=== PATIENT | female | born 1995 | race Caucasian/White ===

== ENCOUNTER 2016-11-28 11:34 | Emergency (ER) | payer OTHER ==
[~2016-11-28] VITALS: Ht 172.7 cm; Wt 107.0 kg
[~2016-11-28 11:34] MED LIST: ETON1IMP2 SUBD; PRENTAB26 PO; TOPI25TA99 PO
[2016-11-28 11:36] VITALS: TEMP 36.8; Ht 172.7 cm; Wt 107.0 kg
[2016-11-28] MEDS ORDERED: LEVOIUD (12:14)
[2016-11-28] MEDS ORDERED: SERT-234 PO (12:14)
[2016-11-28] MEDS ORDERED: SODIUM CHLORIDE 0.9% 1000ML 1,000 ML IV STA (12:43)
[2016-11-28 13:03] LABS: BASO % 0.5 %; BASO ABS # 0.03 K/uL (0-0.2); COMPLETE YES; EOS % 1.8 %; HEMATOCRIT 36.6 % (37-47); IG% 0.2 %; LYMPH % 22.6 %; LYMPH ABS # 1.37 K/uL (1.2-3.4); MEAN CELL VOLUME 86.3 fL (80-100); MEAN CORPUSCULAR HEMOGLOBIN 30.4 pg (25-34); MEAN CORPUSCULAR HGB CONC 35.2 g/dl (32-36); MEAN PLATELET VOLUME 9.3 fL (7.4-10.4); MONO % 7.4 %; NEUT % 67.5 %; PLATELET COUNT 241 K/uL (130-400); RED BLOOD COUNT 4.24 M/uL (4.2-5.4); WHITE BLOOD COUNT 6.07 K/uL (4.8-10.8)
[2016-11-28 13:11] LABS: ALT/SGPT 22 U/L (12-78); BLOOD UREA NITROGEN 12 mg/dl (7-18); BUN/CREATININE RATIO 14.3 (10-20); CALCIUM 9.3 mg/dl (8.5-10.1); CARBON DIOXIDE 26 mmol/L (21-32); CHLORIDE 108 mmol/L (98-107); CREATININE 0.84 mg/dl (0.60-1.20); GLUCOSE 84 mg/dl (70-99); MAGNESIUM 2.3 mg/dl (1.8-2.4); POTASSIUM 3.6 mmol/L (3.5-5.1); SODIUM 142 mmol/L (136-145)
[2016-11-28 13:12] LABS: URINE APPEARANCE CLEAR (CLEAR); URINE BILIRUBIN NEG (NEG); URINE COLOR YELLOW; URINE NITRITE NEG (NEG); URINE SPECIFIC GRAVITY 1.008 (1.000-1.030); UROBILINOGEN NEG (NEG); ZZUR CULT IF INDIC CLEAN CATCH NO
[2016-11-28 13:15] LABS: INR 0.9 (0.9-1.1); PARTIAL THROMBOPLASTIN RATIO 1.1; PROTHROMBIN TIME (PATIENT) 10.1 SECONDS (9.0-12.0)
[2016-11-28 13:19] LABS: MANUAL MICROSCOPIC REQUIRED? NO; REVIEW REQ? NO
[2016-11-28 13:20] LABS: ALKALINE PHOSPHATASE 68 U/L (45-117); AST/SGOT 11 U/L (15-37)
--- NOTE | 2016-11-28 15:09 | EMERGENCY ROOM VISIT NOTE ---
History Report prepared by Daniel: Shanae Campos Under the Supervision of: Dr. Petar Russell D.O. First contact with patient: 12:37 Chief Complaint: DIZZY Stated Complaint: DIZZY Nursing Triage Summary: dizziness for 1 week with diarrhea, no c/o pain no numbness or tingling no syncope and noticed she she gets this when she changes position and with walking it gets worse and then today she gets it sitting she states that she became concerned when she put her zip code where her year should have been pt is is alert and talking and is filling out her health history form History of Present Illness The patient is a 21 year old female who presents to the Emergency Room with complaints of persistent dizziness that began one week ago. The patient describes her dizziness feeling off balance and feeling like she will pass out. She denies any loss of consciousness, but states that she has been close. The patient states that today she has felt delusional and forgetful and also notes a headache. She states that she is currently on her menstrual cycle, but denies getting these symptoms with her typical menstrual cycle. 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 She states that her symptoms are increased with ambulation and standing. The patient reports a normal appetite and fluid intake. She denies any recent illness or hematochezia. The patient denies any chance of . Source of History: patient Onset: one week ago Position: other (global) Quality: other (dizziness) Timing: other (persistent) Modifying Factors (Worsening): other (standing and ambulation) Associated Symptoms: + headache, No hematochezia Review of Systems See HPI for pertinent positives & negatives. A total of 10 systems reviewed and were otherwise negative. Past Medical & Surgical Medical Problems: (1) Lawson's palsy (2) Migraine Surgical Problems: (1) H/O adenoidectomy (2) S/P tonsillectomy Family History Cancer Diabetes mellitus Hypertension Kidney disease Kidney stones Social History Smoking Status: Never Smoker Alcohol Use: none Occupation Status: student Current/Historical Medications Scheduled Multivit/Min/Iron/Fol Ac/Pren ( Vitamin), 1 TAB PO DAILY Sertraline (Zoloft), 100 MG PO HS Topiramate (Topamax ), 25 MG PO QAM Topiramate (Topamax ), 50 MG PO HS Miscellaneous Medications Levonorgestrel (Iud) (Mirena), 24 MCG Allergies Coded Allergies: No Known Allergies (Unverified , 11/28/16) Physical Exam Vital Signs Date Time Temp Pulse Resp B/P Pulse Ox O2 Delivery O2 Flow Rate FiO2 11/28/16 13:26 67 18 129/66 99 11/28/16 12:00 85 11/28/16 11:46 73 19 126/75 80 134/76 83 132/78 11/28/16 11:36 36.8 80 17 139/81 100 Room Air Physical Exam VITAL SIGNS: were reviewed as above. GENERAL:Non-toxic in appearance. SKIN: Warm dry and pink. HEAD: Normocephalic and atraumatic. OROPHARYNX: Is clear and moist NECK: Supple without lymphadenopathy or meningismus. LUNGS: clear. HEART: Regular rate and rhythm. ABDOMEN: Soft and nontender. EXTREMITIES: Warm and well perfused. NEUROLOGICALLY: Awake alert and oriented without focal deficit. Cranial nerves 2 -12 are intact. There is no pronator drift. Cerebellar testing is within normal limits. There is no nystagmus. There is no facial droop. Speech is clear. Vision is grossly normal. MUSCULOSKELETAL: Good muscle tone. No evidence of trauma. Medical Decision & Procedures Laboratory Results 11/28/16 12:13 Red Blood Count 4.24, Mean Corpuscular Volume 86.3, Mean Corpuscular Hemoglobin 30.4, Mean Corpuscular Hemoglobin Concent 35.2, Mean Platelet Volume 9.3, Neutrophils (%) (Auto) 67.5, Lymphocytes (%) (Auto) 22.6, Monocytes (%) (Auto) 7.4, Eosinophils (%) (Auto) 1.8, Basophils (%) (Auto) 0.5, Neutrophils # (Auto) 4.10, Lymphocytes # (Auto) 1.37, Monocytes # (Auto) 0.45, Eosinophils # (Auto) 0.11, Basophils # (Auto) 0.03 11/28/16 12:13 Test 11/28/16 12:10 11/28/16 12:13 Urine Color YELLOW Urine Appearance CLEAR (CLEAR) Urine pH 8.0 (4.5-7.5) Urine Specific [place] 1.008 (1.000-1.030) Urine Protein NEG (NEG) Urine Glucose (UA) NEG (NEG) Urine Ketones NEG (NEG) Urine Occult Blood NEG (NEG) Urine Nitrite NEG (NEG) Urine Bilirubin NEG (NEG) Urine Urobilinogen NEG (NEG) Urine Leukocyte Esterase NEG (NEG) Urine WBC (Auto) 1-5 /hpf (0-5) Urine RBC (Auto) 0-4 /hpf (0-4) Urine Hyaline Casts (Auto) 0 /lpf (0-5) Urine Epithelial Cells (Auto) 5-10 /lpf (0-5) Urine Bacteria (Auto) NEG (NEG) Urine Test NEG (NEG) White Blood Count 6.07 K/uL (4.8-10.8) Red Blood Count 4.24 M/uL (4.2-5.4) Hemoglobin 12.9 g/dL (12.0-16.0) Hematocrit 36.6 % (37-47) Mean Corpuscular Volume 86.3 fL (80-100) Mean Corpuscular Hemoglobin 30.4 pg (25-34) Mean Corpuscular Hemoglobin Concent 35.2 g/dl (32-36) Platelet Count 241 K/uL (130-400) Mean Platelet Volume 9.3 fL (7.4-10.4) Neutrophils (%) (Auto) 67.5 % Lymphocytes (%) (Auto) 22.6 % Monocytes (%) (Auto) 7.4 % Eosinophils (%) (Auto) 1.8 % Basophils (%) (Auto) 0.5 % Neutrophils # (Auto) 4.10 K/uL (1.4-6.5) Lymphocytes # (Auto) 1.37 K/uL (1.2-3.4) Monocytes # (Auto) 0.45 K/uL (0.11-0.59) Eosinophils # (Auto) 0.11 K/uL (0-0.5) Basophils # (Auto) 0.03 K/uL (0-0.2) RDW Standard Deviation 38.3 fL (36.4-46.3) RDW Coefficient of Variation 12.2 % (11.5-14.5) Immature Granulocyte % (Auto) 0.2 % Immature Granulocyte # (Auto) 0.01 K/uL (0.00-0.02) Prothrombin Time 10.1 SECONDS (9.0-12.0) Prothromb Time International Ratio 0.9 (0.9-1.1) Activated Partial Thromboplast Time 27.8 SECONDS (21.0-31.0) Partial Thromboplastin Ratio 1.1 Anion Gap 8.0 mmol/L (3-11) Est Creatinine Clear Calc Drug Dose 136.8 ml/min Estimated GFR () 116.0 Estimated GFR (Non- 100.1 BUN/Creatinine Ratio 14.3 (10-20) Calcium Level 9.3 mg/dl (8.5-10.1) Magnesium Level 2.3 mg/dl (1.8-2.4) Total Bilirubin 0.2 mg/dl (0.2-1) Direct Bilirubin < 0.1 mg/dl (0-0.2) Aspartate Amino Transf (AST/SGOT) 11 U/L (15-37) Alanine Aminotransferase (ALT/SGPT) 22 U/L (12-78) Alkaline Phosphatase 68 U/L (45-117) Total Creatine Kinase 50 U/L (26-192) Creatine Kinase MB < 0.5 ng/ml (0.5-3.6) Creatine Kinase MB Ratio (0-3.0) Troponin I < 0.015 ng/ml (0-0.045) Total Protein 7.4 gm/dl (6.4-8.2) Albumin 4.1 gm/dl (3.4-5.0) Lipase 148 U/L (73-393) Thyroid Stimulating Hormone (TSH) 1.660 uIu/ml (0.300-4.500) Laboratory results as stated above per my review. Medications Administered Medications (Trade) Dose Ordered Sig/Herrera Route Start Time Stop Time Status Last Admin Dose Admin Sodium Chloride (Nss 1000ml) 1,000 ml @ 999 mls/hr Q1H1M STAT IV 11/28/16 12:43 11/28/16 13:43 DC 11/28/16 12:59 999 MLS/HR ECG Indication: other (dizziness) Rate (beats per minute): 63 Rhythm: normal sinus Findings: no acute ischemic change, no ectopy ED Course 1237: Previous medical records were reviewed. The patient was evaluated in room A10. A complete history and physical examination was performed. 1243: Ordered Sodium Chloride 1000 ml @ 999 mls/hr IV. Medical Decision Differential includes acute coronary syndrome, myocardial infarction, CVA, TIA, anemia, infection, pneumonia, UTI, pyelonephritis, poor nutrition, dehydration, electrolyte disturbance,hypoglycemia. This is a 21-year-old female who presents to the ED with a chief complaint of dizziness. Times one week. The patient states that she feels like she is going to follow for pass out. She also felt forgetful today. She came in for evaluation for these symptoms. She is currently on her menstrual period but states that it is dot etcher apprentice than normal. She denies any chance of . She denies any fevers or recent illness. No blood in her stools. No nausea vomiting. Denies headache, chest pain or shortness of breath or other significant symptoms. Her vital signs are normal. Orthostatic vital signs are normal. Physical exam and neurologic exam are normal. EKG shows a normal sinus rhythm. CBC and complete metabolic panel are normal. TSH is normal. Urine did not show infection. She is not . Troponin was negative. The patient was told the results of the test per she is felt to be stable for discharge and outpatient follow-up. Impression Primary Impression: Dizziness Scribe Attestation The scribe's documentation has been prepared under my direction and personally reviewed by me in its entirety. I confirm that the note above accurately reflects all work, treatment, procedures, and medical decision making performed by me. Departure Information Dispostion Home / Self-Care Referrals Ines Martinez MD (PCP) Patient Instructions My [facility]
[2016-11-28 15:10] VITALS: BP 129/59; PULSE 71; O2SAT 98
== END 2016-11-28 15:40 | disposition home or self-care (01) ==
LOC: C.EDB 11:35 → C.EDA 15:40
DX: R42 Dizziness and giddiness (principal)

== ENCOUNTER 2017-02-03 20:54 | Inpatient (IN) | payer OTHER ==
[~2017-02-03] VITALS: Ht 172.7 cm; Wt 111.6 kg
[~2017-02-03 20:54] MED LIST changes: -ETON1IMP2 SUBD; +LEVOIUD; +SERT-234 PO
[2017-02-03 21:32] LABS: HEMATOCRIT 38.6 % (37-47); MEAN CELL VOLUME 85.6 fL (80-100); MEAN CORPUSCULAR HEMOGLOBIN 30.6 pg (25-34); MEAN CORPUSCULAR HGB CONC 35.8 g/dl (32-36); MEAN PLATELET VOLUME 9.2 fL (7.4-10.4); PLATELET COUNT 266 K/uL (130-400); RED BLOOD COUNT 4.51 M/uL (4.2-5.4); WHITE BLOOD COUNT 9.07 K/uL (4.8-10.8)
[2017-02-03 21:48] LABS: BLOOD UREA NITROGEN 10 mg/dl (7-18); BUN/CREATININE RATIO 10.7 (10-20); CALCIUM 9.3 mg/dl (8.5-10.1); CARBON DIOXIDE 25 mmol/L (21-32); CHLORIDE 105 mmol/L (98-107); GLUCOSE 96 mg/dl (70-99); POTASSIUM 3.5 mmol/L (3.5-5.1); SODIUM 141 mmol/L (136-145)
[2017-02-03 21:53] LABS: ACETAMINOPHEN < 2 ug/ml (10-30)
[2017-02-03 21:56] LABS: BASO % 0.4 %; BASO ABS # 0.04 K/uL (0-0.2); COMPLETE YES; EOS % 1.8 %; IG% 0.2 %; LYMPH % 22.4 %; LYMPH ABS # 2.03 K/uL (1.2-3.4); MONO % 7.2 %
[2017-02-03 21:58] LABS: URINE APPEARANCE TURBID (CLEAR); URINE BILIRUBIN NEG (NEG); URINE COLOR YELLOW; URINE NITRITE NEG (NEG); URINE SPECIFIC GRAVITY 1.024 (1.000-1.030); UROBILINOGEN NEG (NEG)
[2017-02-03 21:59] LABS: ALKALINE PHOSPHATASE 73 U/L (45-117); ALT/SGPT 25 U/L (12-78); AST/SGOT 11 U/L (15-37)
[2017-02-03 22:03] LABS: MANUAL MICROSCOPIC REQUIRED? NO; REVIEW REQ? NO
[2017-02-03 22:14] LABS: BENZODIAZEPINE, URINE NEG (NEG); COCAINE,URINE NEG (NEG); PHENCYCLIDINE, URINE NEG (NEG)
--- NOTE | 2017-02-04 01:02 | EMERGENCY ROOM VISIT NOTE ---
History Report prepared by Daniel: Gato Contreras Under the Supervision of: Dr. Wilberto Myles M.D. First contact with patient: 21:10 Chief Complaint: MENTAL HEALTH EVALUATION Stated Complaint: SUICIDAL IDEALTION History of Present Illness The patient is a 21 year old female who presents to the Emergency Room with concerns over her worsening mental status, which has been declining for the past week. The patient states that she has been under increased stress for the past month. She states that today she started to think of suicidal plans, specifically "wrecking my car." She texted her friend about the thoughts she was having, and then called her mother who brought her to the emergency department. She does admit to using both marijuana and alcohol within the past week. The patient has a history of depression and is on 100 mg of Zoloft daily. She also meets with a medical services manager regularly. Patient denies LOC, headache, fevers , chills, diaphoresis, visual changes, neck pain, chest pain, breathing difficulties, nausea, vomiting, abdominal pain, back pain, melena, hematochezia , urinary symptoms, numbness, weakness, lymphadenopathy, rash, or other complaints. 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 A total of ten systems were reviewed and were otherwise negative. Past Medical & Surgical Medical Problems: (1) Lawson's palsy (2) Migraine Surgical Problems: (1) H/O adenoidectomy (2) S/P tonsillectomy Family History Cancer Diabetes mellitus Hypertension Kidney disease Kidney stones Social History Smoking Status: Never Smoker Alcohol Use: none Marital Status: single Occupation Status: student Current/Historical Medications Scheduled Multivit/Min/Iron/Fol Ac/Pren ( Vitamin), 1 TAB PO DAILY Sertraline (Zoloft), 100 MG PO QAM Topiramate (Topamax ), 25 MG PO QAM Topiramate (Topamax ), 50 MG PO HS Miscellaneous Medications Levonorgestrel (Iud) (Mirena), 24 MCG Allergies Coded Allergies: No Known Allergies (Unverified , 02/03/17) Physical Exam Vital Signs Date Time Temp Pulse Resp B/P Pulse Ox O2 Delivery O2 Flow Rate FiO2 3/26/17 23:22 97 20 116/75 96 Room Air 02/03/17 21:00 37.1 111 18 151/87 99 Room Air Physical Exam GENERAL: Awake, alert, well appearing, no distress HENT: Normocephalic, atraumatic. TM's normal. Oropharynx unremarkable. EYES: PERRL. EOMI. Normal conjunctiva. Sclera non-icteric. NECK: Supple. No nuchal rigidity. FROM. No JVD or bruit. RESPIRATORY: CTA CARDIAC: RRR. No murmur. ABDOMEN: Soft, non distended. No tenderness to palpation. No rebound or guarding. No masses. MUSCULOSKELETAL: Unremarkable. No edema. No discoloration. Gross motor strength symmetric. NEURO: Cranial nerves 2-12 grossly intact. Normal sensorium. No sensory or motor deficits noted. Speech normal. No pronator drift. SKIN: No rash or jaundice noted. LYMPH: No adenopathy. PSYCH: depressed mood. positive suicidal ideation. negative homicidal ideation. Medical Decision & Procedures Laboratory Results 02/03/17 21:15 Red Blood Count 4.51, Mean Corpuscular Volume 85.6, Mean Corpuscular Hemoglobin 30.6, Mean Corpuscular Hemoglobin Concent 35.8, Mean Platelet Volume 9.2, Neutrophils (%) (Auto) 68.0, Lymphocytes (%) (Auto) 22.4, Monocytes (%) (Auto) 7.2, Eosinophils (%) (Auto) 1.8, Basophils (%) (Auto) 0.4, Neutrophils # (Auto) 6.17, Lymphocytes # (Auto) 2.03, Monocytes # (Auto) 0.65, Eosinophils # (Auto) 0.16, Basophils # (Auto) 0.04 02/03/17 21:15 Test 02/03/17 21:15 02/03/17 21:25 White Blood Count 9.07 K/uL (4.8-10.8) Red Blood Count 4.51 M/uL (4.2-5.4) Hemoglobin 13.8 g/dL (12.0-16.0) Hematocrit 38.6 % (37-47) Mean Corpuscular Volume 85.6 fL (80-100) Mean Corpuscular Hemoglobin 30.6 pg (25-34) Mean Corpuscular Hemoglobin Concent 35.8 g/dl (32-36) Platelet Count 266 K/uL (130-400) Mean Platelet Volume 9.2 fL (7.4-10.4) Neutrophils (%) (Auto) 68.0 % Lymphocytes (%) (Auto) 22.4 % Monocytes (%) (Auto) 7.2 % Eosinophils (%) (Auto) 1.8 % Basophils (%) (Auto) 0.4 % Neutrophils # (Auto) 6.17 K/uL (1.4-6.5) Lymphocytes # (Auto) 2.03 K/uL (1.2-3.4) Monocytes # (Auto) 0.65 K/uL (0.11-0.59) Eosinophils # (Auto) 0.16 K/uL (0-0.5) Basophils # (Auto) 0.04 K/uL (0-0.2) RDW Standard Deviation 39.4 fL (36.4-46.3) RDW Coefficient of Variation 12.7 % (11.5-14.5) Immature Granulocyte % (Auto) 0.2 % Immature Granulocyte # (Auto) 0.02 K/uL (0.00-0.02) Anion Gap 11.0 mmol/L (3-11) Est Creatinine Clear Calc Drug Dose 130.6 ml/min Estimated GFR () 106.7 Estimated GFR (Non- 92.0 BUN/Creatinine Ratio 10.7 (10-20) Calcium Level 9.3 mg/dl (8.5-10.1) Total Bilirubin 0.3 mg/dl (0.2-1) Direct Bilirubin < 0.1 mg/dl (0-0.2) Aspartate Amino Transf (AST/SGOT) 11 U/L (15-37) Alanine Aminotransferase (ALT/SGPT) 25 U/L (12-78) Alkaline Phosphatase 73 U/L (45-117) Total Protein 7.9 gm/dl (6.4-8.2) Albumin 4.3 gm/dl (3.4-5.0) Thyroid Stimulating Hormone (TSH) 2.400 uIu/ml (0.300-4.500) Salicylates Level < 1.7 mg/dl (2.8-20) Acetaminophen Level < 2 ug/ml (10-30) Ethyl Alcohol mg/dL < 3.0 mg/dl (0-3) Urine Color YELLOW Urine Appearance TURBID (CLEAR) Urine pH 7.0 (4.5-7.5) Urine Specific [place] 1.024 (1.000-1.030) Urine Protein NEG (NEG) Urine Glucose (UA) NEG (NEG) Urine Ketones TRACE (NEG) Urine Occult Blood NEG (NEG) Urine Nitrite NEG (NEG) Urine Bilirubin NEG (NEG) Urine Urobilinogen NEG (NEG) Urine Leukocyte Esterase NEG (NEG) Urine WBC (Auto) 1-5 /hpf (0-5) Urine RBC (Auto) 0-4 /hpf (0-4) Urine Hyaline Casts (Auto) 1-5 /lpf (0-5) Urine Epithelial Cells (Auto) 10-20 /lpf (0-5) Urine Bacteria (Auto) 1+ (NEG) Urine Test NEG (NEG) Urine Opiates Screen NEG (NEG) Urine Methadone, Qualitative NEG (NEG) Urine Barbiturates NEG (NEG) Urine Phencyclidine (PCP) Level NEG (NEG) Ur Amphetamine/Methamphetamine NEG (NEG) MDMA (Ecstasy) Screen NEG (NEG) Urine Benzodiazepines Screen NEG (NEG) Urine Cocaine Metabolite NEG (NEG) Urine Marijuana (THC) NEG (NEG) Laboratory results reviewed by me ED Course 2139: The patient was evaluated in room A7. A complete history and physical exam was performed. 2224: The patient has received medical clearance at this time. 2356: I reevaluated the patient at this time, she is resting comfortably in bed. 0031: [facility] HEL[facility] has arrived to evaluate the patient at this time. 0130: The patient will be signed out to Dr. Hicks at change of shift. Medical Decision Triage Nursing notes reviewed. The patient's presentation and history were concerning for suicidal thoughts. ETiologies such as mood disorder, toxicologic, infection, hypoglycemia, electrolyte abnormalities, cardiac sources, intracerebral event, neurologic, as well as others were entertained. The patient was evaluated. There is no medical etiologies identified. Her CBC , chemistry panel, toxicology screen, urinalysis and LFTs were unremarkable. On reassessment the patient was resting comfortably. She was pending Mental Health Evaluation. The patient's case was signed out to Dr. Haywood at the change of shift. The chart was completed utilizing [employer] Speech voice recognition software. Grammatical errors, random word insertions, pronoun errors, and incomplete sentences are an occasional consequence of this system due to software limitations, ambient noise, and hardware issues. Any formal questions or concerns about the content, text, or information contained within the body of this dictation should be directly addressed to the physician for clarification. Impression Primary Impression: Mood disorder Additional Impression: Suicidal ideation Scribe Attestation The scribe's documentation has been prepared under my direction and personally reviewed by me in its entirety. I confirm that the note above accurately reflects all work, treatment, procedures, and medical decision making performed by me. Departure Information Dispostion Still a Patient (Patient will be signed out to Dr. Hicks at change of shift) Referrals Ines Martinez MD (PCP) Patient Instructions My [facility] Problem Qualifiers
[2017-02-04] MEDS ORDERED: TOPIRAMATE 25 MG TAB PO STA (04:53)
[2017-02-04] MEDS ORDERED: SERTRALINE HCL 100 MG TAB PO STA (04:53)
--- NOTE | 2017-02-04 06:18 | EMERGENCY ROOM VISIT NOTE ---
ED Visit Note First contact with patient: 00:32 This case was signed out to me at change of shift by Dr. Myles. She is awaiting bed placement. 0330: The patient is being evaluated by mobile crisis at this time. 0405: the patient has consented for bed search at [facility] and here at this hospital. 0455: I ordered the patient's morning medications. 0530: The patient has not been accepted at [facility]. The plan is to admit the patient to [facility] some time this morning if there are discharges. 0630: The patient is signed out to Dr. Wraren at change of shift for disposition.
[2017-02-04] MEDS ORDERED: ACETAMINOPHEN 500 MG TAB PO STA (11:23)
[2017-02-04] MEDS ORDERED: MAGNESIUM HYDROXIDE SUSP 30 ML UDC PO PRN (11:30)
[2017-02-04] MEDS ORDERED: BISMUTH SUBSALICYLATE PER ML OMNICELL CHARGE PO PRN (11:30)
[2017-02-04] MEDS ORDERED: ALUMINUM/MAGNESIUM SUSP 30 ML UDC PO PRN (11:30)
[2017-02-04] MEDS ORDERED: SODIUM CHLORIDE 0.65% NA SOLN 45 ML (OCEAN) PRN (11:30)
[2017-02-04 11:36] VITALS: O2SAT 98
--- NOTE | 2017-02-04 11:40 | EMERGENCY ROOM VISIT NOTE ---
ED Visit Note First contact with patient: 11:23 21-year-old female with suicidal ideation was signed off to me from Dr. Haywood at change of shift. I reevaluated the patient at 1137. The patient is currently awaiting bed placement. The patient eventually admitted to [facility] [address].
[2017-02-04] MEDS ORDERED: SERTRALINE HCL 50 MG TAB PO ONE (12:36)
[2017-02-04 12:56] VITALS: BP 107/78; PULSE 86; TEMP 37.1; Ht 172.7 cm; Wt 111.6 kg
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
[2017-02-04] MEDS: ACETAMINOPHEN 325 MG TAB PO PRN (17:13)
[2017-02-04] MEDS: hydrOXYzine HCL 25 MG TAB PO PRN (20:23)
[2017-02-04] MEDS: TOPIRAMATE 50 MG TAB PO SCH (21:33)
[2017-02-05 06:58] VITALS: BP_SYST 108; BP_SYST 110; BP_DIAS 73; BP_DIAS 75; PULSE 70; PULSE 80; TEMP 36.4
[2017-02-05] MEDS ORDERED: SERTRALINE HCL 100 MG TAB PO SCH (09:00)
[2017-02-05] MEDS: TOPIRAMATE 25 MG TAB PO SCH (09:04)
[2017-02-05] MEDS: PRENATAL VITAMIN TAB PO SCH (09:04)
[2017-02-05] MEDS: ACETAMINOPHEN 325 MG TAB PO PRN (10:54)
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
[2017-02-05] MEDS: hydrOXYzine HCL 25 MG TAB PO PRN ×2 (20:00→21:59)
[2017-02-05] MEDS: TOPIRAMATE 50 MG TAB PO SCH (21:22)
[2017-02-06 06:56] VITALS: BP_SYST 105; BP_SYST 110; BP_DIAS 70; BP_DIAS 73; PULSE 60; PULSE 71; TEMP 36.5
[2017-02-06] MEDS: PRENATAL VITAMIN TAB PO SCH (08:35)
[2017-02-06] MEDS: SERTRALINE HCL 100 MG TAB PO SCH (08:36)
[2017-02-06] MEDS: TOPIRAMATE 25 MG TAB PO SCH (08:36)
[2017-02-06] MEDS: hydrOXYzine HCL 25 MG TAB PO PRN ×3 (11:55→22:03)
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
[2017-02-06] MEDS: TOPIRAMATE 50 MG TAB PO SCH (20:58)
[2017-02-07 06:49] VITALS: BP_SYST 101; BP_SYST 108; BP_DIAS 68; BP_DIAS 72; PULSE 64; TEMP 36.5
[2017-02-07] MEDS: SERTRALINE HCL 100 MG TAB PO SCH (08:45)
[2017-02-07] MEDS: PRENATAL VITAMIN TAB PO SCH (08:45)
[2017-02-07] MEDS: TOPIRAMATE 25 MG TAB PO SCH (08:45)
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
[2017-02-07] MEDS: TOPIRAMATE 50 MG TAB PO SCH (22:07)
[2017-02-07] MEDS: TRAZODONE HCL 50 MG TAB PO SCH (22:07)
[2017-02-08 06:44] VITALS: BP_SYST 116; BP_SYST 129; BP_DIAS 78; BP_DIAS 92; PULSE 67; PULSE 75; TEMP 36.8
[2017-02-08] MEDS: PRENATAL VITAMIN TAB PO SCH (08:48)
[2017-02-08] MEDS: TOPIRAMATE 25 MG TAB PO SCH (08:48)
[2017-02-08] MEDS: SERTRALINE HCL 100 MG TAB PO SCH (08:48)
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
--- NOTE | 2017-02-08 16:03 | Psychiatric Progress Notes ---
Psychiatric Progress Note Date of Service Feb 08, 2017. Notes Patient seen, MS assessed. Rates mood as a bit better this afternoon as able to engage in rec activity with peers. Cooperative with care and treatment plan as outlined by CLAUDIO. Participated in treatment team this am.
[2017-02-08] MEDS: ACETAMINOPHEN 325 MG TAB PO PRN (18:09)
[2017-02-08] MEDS: TOPIRAMATE 50 MG TAB PO SCH (21:45)
[2017-02-08] MEDS: TRAZODONE HCL 50 MG TAB PO SCH (21:45)
[2017-02-09 06:47] VITALS: BP_SYST 102; BP_SYST 95; BP_DIAS 65; BP_DIAS 66; PULSE 76; PULSE 88; TEMP 36.5
[2017-02-09] MEDS: SERTRALINE HCL 100 MG TAB PO SCH (09:11)
[2017-02-09] MEDS: TOPIRAMATE 25 MG TAB PO SCH (09:11)
[2017-02-09] MEDS: PRENATAL VITAMIN TAB PO SCH (09:11)
--- NOTE | 2017-02-09 10:30 | Psych Management Progress Note ---
Psychiatry Miscellaneous Date of Service: Feb 09, 2017. Patient seen, MS assessed. Rates mood as 7/10 and content. Cooperative with care and treatment plan as outlined by [employer]ICATION[employer] ENGINEER. Encouraged participation in therapeutic activities. She states that puzzles are relaxing to her and plans to use as coping skill outside of hospital.
--- NOTE | 2017-02-09 10:39 | Psychiatric Progress Notes ---
Progress Note Date of Service Feb 09, 2017. Interval History Xiao Lugo is a 21-year-old woman from [place], [place], admitted to our unit on a 201 voluntary commitment with severe depression and suicidality. Chief Complaint "Pretty good.". Subjective Patient was seen & assessed interval progress reviewed with Treatment Team. The patient says that she is doing a little better. Yesterday she had no thoughts to suicide, but did have some thoughts to self injure after talking with her dad. Her dad said he understood that she didn't want a family meeting and wondered why, whether there was something he should know. She felt badly that she made him feel bad and had thoughts then that she should self injure, but did not act on them. At home, she has thoughts to self injure when under stress, and more often in the evenings. She rates her mood today 7/10 and feels that she is "getting better". Review of Systems Constitutional: No chills, No fatigue, No fever, No problem reported, No sweats , No weakness, No weight loss ENT: No dental problems, No hearing loss, No nasal symptoms, No problem reported, No sore throat, No tinnitus, No trouble swallowing, No unusual epistaxis Respiratory: No cough, No dyspnea at rest, No dyspnea on exertion, No hemoptysis, No problem reported, No shortness of breath, No sputum, No wheezing Cardiovascular: No PND, No chest pain, No claudication, No edema, No orthopnea , No palpitations, No problem reported Abdomen: No GI bleeding, No constipation, No diarrhea, No nausea, No pain, No problem reported, No vomiting Musculoskeletal: No calf pain, No joint pain, No muscle pain, No problem reported, No swelling Neurologic: No balance problems, No memory loss, No numbness/tingling, No paralysis, No problem reported, No vertigo, No weakness Psychiatric: + anxiety, + depression symptoms (with thoughts of SIB but no SI today) Integumentary: No bleeding, No color change, No itch, No new/changing skin lesions, No problem reported, No rash Sleep Information Total Hours of Sleep: 6.50 Meal Information Percent of Breakfast Consumed: 75 Percent of Lunch Consumed: 80 Percent of Dinner Consumed: 50 Mental Status Exam During interview pt is: alert and oriented, cooperative Appearance: appropriately dressed, appropriately groomed Eye contact is: good Motor behavior is: steady gait & station, no abnormal motor movements Speech: normal in rate, rhythm & volume Affect: depressed, blunted, constricted Mood is: depressed, anxious Thought process: goal directed Thought content: reality based without delusions Suicidal thought are: present, Intent: denied Homicidal thoughts are: denied Hallucinations: denies auditory, denies visual Cognition: memory grossly intact, attention grossly intact, language grossly intact Intelligence estimated to be: average Insight: fair Judgement: fair Impression Small improvements each day, yesterday with no acute SI. Continues with thoughts to self injure when emotionally distressed, but able not to act on them. Sleep improved with trazodone. If progress continues could consider discharge as soon as Saturday. Continued Inpatient Care The patient requires inpatient care due to the severity of her condition and the risk of self harm if discharged. Plan (1) Depression 02/04: A. Increase Zoloft to 150 mg daily. B. Vistaril p.r.n. for anxiety and sleep. C. Family meeting. D. Q. 15 minute checks for safety. E. Encourage participation in group and individual counseling. F. Coordinate with current therapist and refer for a psychiatric prescriber post-discharge. 02/05 Increase sertraline to 200mg daily for tomorrow. Encourage family meeting with parents, and refer for OP psychiatry. 02/06 - Continue current meds - Still unwilling to have meeting with parents. Will continue to discuss 02/07 - Add trazodone 50 mg. HS - Continue other meds - Continue to encourage family meeting. Guns are in their home and will need to be secured. 02/08 - Continue current meds. (2) Suicidal ideation Q 15 min checks for safety Work on safety plan, including securing guns, meds, and plan for substance abuse. (3) Cannabis abuse Recommend abstaining for the foreseeable future in view of her depression. Will return to therapy with Cassandra at [facility] where both mental health and substance abuse can be addressed. (4) Alcohol abuse Recommend abstaining for the foreseeable future in view of her depression. Return to OP therapist as above. (5) Migraine Continue Topamax at 25 mg a.m. and 50 mg at bedtime. Discharge / Aftercare Planning Primary Care Physician: Name: Dr Martinez Date of Appointment: May 07, 2017 Time of Appointment: 2:20pm Psychiatrist: Name: Dr Vera Date of Appointment: Feb 14, 2017 Time of Appointment: 3:15pm Appointment Notes: Arrive to your appointment at 2:45 to register Therapist: Name: [facility] Date of Appointment: Feb 13, 2017 Teradata Developer: Name: None Neurologist: Name: Dr Nettles Date of Appointment: Jul 23, 2017 Time of Appointment: 1:00pm Visit Code E&M Code: [id number] Risk Factors Assessment : Yes /single/: Yes Higher / Fall in social status: No Access to guns: Yes Health problems: No Mental Health Diagnoses: Yes Substance use disorders: Yes Previous attempt: No Previous psychiatric stay: No Hopelessness: Yes Smoker: No Protective Factors Assessment Rastafarian beliefs: Yes : No Responsible for young children: No Employed: Yes (but resigning) Stable relationships: No Supportive family: Yes Data Vital Signs Last 24 Hrs: Date Time Temp Pulse Resp B/P Pulse Ox O2 Delivery O2 Flow Rate FiO2 02/09/17 06:47 36.5 76 16 102/66 88 95/65 Meds Administered Last 24 Hrs: Meds Administered (Past 24Hrs) Medications (Trade) Dose Ordered Sig/Herrera Route Start Time Stop Time Status Last Admin Dose Admin Trazodone HCl (Desyrel Tab) 50 mg HS PO 02/07/17 22:00 03/09/17 21:59 02/08/17 21:45 50 MG Lab Results Last 24 Hrs: 02/03/17 21:15 Red Blood Count 4.51, Mean Corpuscular Volume 85.6, Mean Corpuscular Hemoglobin 30.6, Mean Corpuscular Hemoglobin Concent 35.8, Mean Platelet Volume 9.2, Neutrophils (%) (Auto) 68.0, Lymphocytes (%) (Auto) 22.4, Monocytes (%) (Auto) 7.2, Eosinophils (%) (Auto) 1.8, Basophils (%) (Auto) 0.4, Neutrophils # (Auto) 6.17, Lymphocytes # (Auto) 2.03, Monocytes # (Auto) 0.65, Eosinophils # (Auto) 0.16, Basophils # (Auto) 0.04 02/03/17 21:15 Test 02/03/17 21:15 02/03/17 21:25 White Blood Count 9.07 K/uL (4.8-10.8) Red Blood Count 4.51 M/uL (4.2-5.4) Hemoglobin 13.8 g/dL (12.0-16.0) Hematocrit 38.6 % (37-47) Mean Corpuscular Volume 85.6 fL (80-100) Mean Corpuscular Hemoglobin 30.6 pg (25-34) Mean Corpuscular Hemoglobin Concent 35.8 g/dl (32-36) Platelet Count 266 K/uL (130-400) Mean Platelet Volume 9.2 fL (7.4-10.4) Neutrophils (%) (Auto) 68.0 % Lymphocytes (%) (Auto) 22.4 % Monocytes (%) (Auto) 7.2 % Eosinophils (%) (Auto) 1.8 % Basophils (%) (Auto) 0.4 % Neutrophils # (Auto) 6.17 K/uL (1.4-6.5) Lymphocytes # (Auto) 2.03 K/uL (1.2-3.4) Monocytes # (Auto) 0.65 K/uL (0.11-0.59) Eosinophils # (Auto) 0.16 K/uL (0-0.5) Basophils # (Auto) 0.04 K/uL (0-0.2) RDW Standard Deviation 39.4 fL (36.4-46.3) RDW Coefficient of Variation 12.7 % (11.5-14.5) Immature Granulocyte % (Auto) 0.2 % Immature Granulocyte # (Auto) 0.02 K/uL (0.00-0.02) Anion Gap 11.0 mmol/L (3-11) Est Creatinine Clear Calc Drug Dose 130.6 ml/min Estimated GFR () 106.7 Estimated GFR (Non- 92.0 BUN/Creatinine Ratio 10.7 (10-20) Calcium Level 9.3 mg/dl (8.5-10.1) Total Bilirubin 0.3 mg/dl (0.2-1) Direct Bilirubin < 0.1 mg/dl (0-0.2) Aspartate Amino Transf (AST/SGOT) 11 U/L (15-37) Alanine Aminotransferase (ALT/SGPT) 25 U/L (12-78) Alkaline Phosphatase 73 U/L (45-117) Total Protein 7.9 gm/dl (6.4-8.2) Albumin 4.3 gm/dl (3.4-5.0) Thyroid Stimulating Hormone (TSH) 2.400 uIu/ml (0.300-4.500) Salicylates Level < 1.7 mg/dl (2.8-20) Acetaminophen Level < 2 ug/ml (10-30) Ethyl Alcohol mg/dL < 3.0 mg/dl (0-3) Urine Color YELLOW Urine Appearance TURBID (CLEAR) Urine pH 7.0 (4.5-7.5) Urine Specific Humble 1.024 (1.000-1.030) Urine Protein NEG (NEG) Urine Glucose (UA) NEG (NEG) Urine Ketones TRACE (NEG) Urine Occult Blood NEG (NEG) Urine Nitrite NEG (NEG) Urine Bilirubin NEG (NEG) Urine Urobilinogen NEG (NEG) Urine Leukocyte Esterase NEG (NEG) Urine WBC (Auto) 1-5 /hpf (0-5) Urine RBC (Auto) 0-4 /hpf (0-4) Urine Hyaline Casts (Auto) 1-5 /lpf (0-5) Urine Epithelial Cells (Auto) 10-20 /lpf (0-5) Urine Bacteria (Auto) 1+ (NEG) Urine Test NEG (NEG) Urine Opiates Screen NEG (NEG) Urine Methadone, Qualitative NEG (NEG) Urine Barbiturates NEG (NEG) Urine Phencyclidine (PCP) Level NEG (NEG) Ur Amphetamine/Methamphetamine NEG (NEG) MDMA (Ecstasy) Screen NEG (NEG) Urine Benzodiazepines Screen NEG (NEG) Urine Cocaine Metabolite NEG (NEG) Urine Marijuana (THC) NEG (NEG) Problem Qualifiers (1) Depression: Depression Type: major depressive disorder Major depression recurrence: recurrent Active/Remission status: currently active Major depression episode severity: severe Psychotic features: without psychotic features Qualified Codes: F33.2 - Major depressive disorder, recurrent severe without psychotic features
[2017-02-09] MEDS: ACETAMINOPHEN 325 MG TAB PO PRN ×2 (13:44→17:51)
[2017-02-09] MEDS: TOPIRAMATE 50 MG TAB PO SCH (21:06)
[2017-02-09] MEDS: TRAZODONE HCL 50 MG TAB PO SCH (21:06)
[2017-02-10 06:47] VITALS: BP_SYST 103; BP_SYST 96; BP_DIAS 62; BP_DIAS 69; PULSE 62; PULSE 86; TEMP 36.6
--- NOTE | 2017-02-10 08:06 | Psychiatric Progress Notes ---
Progress Note Date of Service Feb 10, 2017. Interval History Xiao Lugo is a 21-year-old woman from [place], [place], admitted to our unit on a 201 voluntary commitment with severe depression and suicidality. Chief Complaint "Good". Subjective Patient was seen & assessed interval progress reviewed with Treatment Team. Since yesterday's meeting, she reports no SI or thoughts to self injure. She says that the trazodone is helping her sleep, and last night had no nightmares. Her mood is improved, and she is now thinking she can safety return home. She has worked on her safety plan and knows what to do if she becomes severely depressed again. Review of Systems Constitutional: No chills, No fatigue, No fever, No problem reported, No sweats , No weakness, No weight loss ENT: No dental problems, No hearing loss, No nasal symptoms, No problem reported, No sore throat, No tinnitus, No trouble swallowing, No unusual epistaxis Respiratory: No cough, No dyspnea at rest, No dyspnea on exertion, No hemoptysis, No problem reported, No shortness of breath, No sputum, No wheezing Cardiovascular: No PND, No chest pain, No claudication, No edema, No orthopnea , No palpitations, No problem reported Abdomen: No GI bleeding, No constipation, No diarrhea, No nausea, No pain, No problem reported, No vomiting Musculoskeletal: No calf pain, No joint pain, No muscle pain, No problem reported, No swelling Neurologic: No balance problems, No memory loss, No numbness/tingling, No paralysis, No problem reported, No vertigo, No weakness Psychiatric: + problem reported (improved mood and sleep) Integumentary: No bleeding, No color change, No itch, No new/changing skin lesions, No problem reported, No rash Sleep Information Total Hours of Sleep: 8.00 Meal Information Percent of Breakfast Consumed: 75 Percent of Lunch Consumed: 100 Percent of Dinner Consumed: 100 Mental Status Exam During interview pt is: alert and oriented, cooperative Appearance: appropriately dressed, appropriately groomed Eye contact is: good Motor behavior is: steady gait & station, no abnormal motor movements Speech: normal in rate, rhythm & volume Affect: blunted Mood is: depressed (but improving), anxious Thought process: goal directed Thought content: reality based without delusions Suicidal thought are: present, Intent: denied Homicidal thoughts are: denied Hallucinations: denies auditory, denies visual Cognition: memory grossly intact, attention grossly intact, language grossly intact Intelligence estimated to be: average Insight: fair Judgement: fair Impression Has had no SI or thoughts to self injure yesterday and sleep is consistently improved with trazodone. If progress continues, will consider discharge as soon as tomorrow. Continued Inpatient Care The patient requires inpatient care due to the severity of her condition and the risk of self harm if discharged. Plan (1) Depression 02/04: A. Increase Zoloft to 150 mg daily. B. Vistaril p.r.n. for anxiety and sleep. C. Family meeting. D. Q. 15 minute checks for safety. E. Encourage participation in group and individual counseling. F. Coordinate with current therapist and refer for a psychiatric prescriber post-discharge. 02/05 Increase sertraline to 200mg daily for tomorrow. Encourage family meeting with parents, and refer for OP psychiatry. 02/06 - Continue current meds - Still unwilling to have meeting with parents. Will continue to discuss 02/07 - Add trazodone 50 mg. HS - Continue other meds - Continue to encourage family meeting. Guns are in their home and will need to be secured. 02/08 - Continue current meds. 02/10 - Continue current plan - Per nursing, guns have been secured at parents home (2) Suicidal ideation Q 15 min checks for safety Work on safety plan, including securing guns, meds, and plan for substance abuse. (3) Cannabis abuse Recommend abstaining for the foreseeable future in view of her depression. Will return to therapy with Cassandra at [facility] where both mental health and substance abuse can be addressed. (4) Alcohol abuse Recommend abstaining for the foreseeable future in view of her depression. Return to OP therapist as above. (5) Migraine Continue Topamax at 25 mg a.m. and 50 mg at bedtime. Discharge / Aftercare Planning Primary Care Physician: Name: Dr Martinez Date of Appointment: May 07, 2017 Time of Appointment: 2:20pm Psychiatrist: Name: Dr Vera Date of Appointment: Feb 14, 2017 Time of Appointment: 3:15pm Appointment Notes: Arrive to your appointment at 2:45 to register Therapist: Name: [facility] Date of Appointment: Feb 13, 2017 Reliner: Name: None Neurologist: Name: Dr Nettles Date of Appointment: Jul 23, 2017 Time of Appointment: 1:00pm Visit Code E&M Code: 60603 Risk Factors Assessment : Yes /single/: Yes Higher / Fall in social status: No Access to guns: Yes Health problems: No Mental Health Diagnoses: Yes Substance use disorders: Yes Previous attempt: No Previous psychiatric stay: No Hopelessness: Yes Smoker: No Protective Factors Assessment Moravian beliefs: Yes : No Responsible for young children: No Employed: Yes (but resigning) Stable relationships: No Supportive family: Yes Data Vital Signs Last 24 Hrs: Date Time Temp Pulse Resp B/P Pulse Ox O2 Delivery O2 Flow Rate FiO2 02/10/17 06:47 36.6 62 16 103/69 86 96/62 Meds Administered Last 24 Hrs: Current Inpatient Medications Medications (Trade) Dose Ordered Sig/Herrera Route Start Time Stop Time Status Last Admin Dose Admin Acetaminophen (Tylenol Tab) 650 mg Q4H PRN PO 02/04/17 11:30 03/06/17 11:29 02/09/17 17:51 650 MG Bismuth Subsalicylate (Kaopectate Liqd) 15 ml PRN PRN PO 02/04/17 11:30 03/06/17 11:29 Al Hydroxide/Mg Hydroxide (Maalox Susp) 30 ml Q4H PRN PO 02/04/17 11:30 03/06/17 11:29 Magnesium Hydroxide (Milk Of Magnesia Susp) 30 ml DAILY PRN PO 02/04/17 11:30 03/06/17 11:29 02/06/17 21:16 30 ML Sodium Chloride ([place] Nasal [place]) PRN PRN NA 02/04/17 11:30 03/06/17 11:29 Hydroxyzine HCl (Vistaril Tab) 50 mg HSZ PRN PO 02/04/17 11:30 03/06/17 11:29 02/06/17 22:03 50 MG Hydroxyzine HCl (Vistaril Tab) 25 mg Q4H PRN PO 02/04/17 11:30 03/06/17 11:29 02/06/17 11:55 25 MG Prenat Multivit/ Correspondence Clerk/Iron/Folic Ac ( Vitamin Tab) 1 tab DAILY PO 02/05/17 09:00 03/07/17 08:59 02/09/17 09:11 1 TAB Topiramate (Topamax Tab) 25 mg QAM PO 02/05/17 09:00 03/07/17 08:59 02/09/17 09:11 25 MG Topiramate (Topamax Tab) 50 mg HS PO 02/04/17 22:00 03/06/17 21:59 02/09/17 21:06 50 MG Sertraline HCl (Zoloft Tab) 200 mg QAM PO 02/06/17 09:00 03/08/17 08:59 02/09/17 09:11 200 MG Trazodone HCl (Desyrel Tab) 50 mg HS PO 02/07/17 22:00 03/09/17 21:59 02/09/17 21:06 50 MG Lab Results Last 24 Hrs: 02/03/17 21:15 Red Blood Count 4.51, Mean Corpuscular Volume 85.6, Mean Corpuscular Hemoglobin 30.6, Mean Corpuscular Hemoglobin Concent 35.8, Mean Platelet Volume 9.2, Neutrophils (%) (Auto) 68.0, Lymphocytes (%) (Auto) 22.4, Monocytes (%) (Auto) 7.2, Eosinophils (%) (Auto) 1.8, Basophils (%) (Auto) 0.4, Neutrophils # (Auto) 6.17, Lymphocytes # (Auto) 2.03, Monocytes # (Auto) 0.65, Eosinophils # (Auto) 0.16, Basophils # (Auto) 0.04 02/03/17 21:15 Test 02/03/17 21:15 02/03/17 21:25 White Blood Count 9.07 K/uL (4.8-10.8) Red Blood Count 4.51 M/uL (4.2-5.4) Hemoglobin 13.8 g/dL (12.0-16.0) Hematocrit 38.6 % (37-47) Mean Corpuscular Volume 85.6 fL (80-100) Mean Corpuscular Hemoglobin 30.6 pg (25-34) Mean Corpuscular Hemoglobin Concent 35.8 g/dl (32-36) Platelet Count 266 K/uL (130-400) Mean Platelet Volume 9.2 fL (7.4-10.4) Neutrophils (%) (Auto) 68.0 % Lymphocytes (%) (Auto) 22.4 % Monocytes (%) (Auto) 7.2 % Eosinophils (%) (Auto) 1.8 % Basophils (%) (Auto) 0.4 % Neutrophils # (Auto) 6.17 K/uL (1.4-6.5) Lymphocytes # (Auto) 2.03 K/uL (1.2-3.4) Monocytes # (Auto) 0.65 K/uL (0.11-0.59) Eosinophils # (Auto) 0.16 K/uL (0-0.5) Basophils # (Auto) 0.04 K/uL (0-0.2) RDW Standard Deviation 39.4 fL (36.4-46.3) RDW Coefficient of Variation 12.7 % (11.5-14.5) Immature Granulocyte % (Auto) 0.2 % Immature Granulocyte # (Auto) 0.02 K/uL (0.00-0.02) Anion Gap 11.0 mmol/L (3-11) Est Creatinine Clear Calc Drug Dose 130.6 ml/min Estimated GFR () 106.7 Estimated GFR (Non- 92.0 BUN/Creatinine Ratio 10.7 (10-20) Calcium Level 9.3 mg/dl (8.5-10.1) Total Bilirubin 0.3 mg/dl (0.2-1) Direct Bilirubin < 0.1 mg/dl (0-0.2) Aspartate Amino Transf (AST/SGOT) 11 U/L (15-37) Alanine Aminotransferase (ALT/SGPT) 25 U/L (12-78) Alkaline Phosphatase 73 U/L (45-117) Total Protein 7.9 gm/dl (6.4-8.2) Albumin 4.3 gm/dl (3.4-5.0) Thyroid Stimulating Hormone (TSH) 2.400 uIu/ml (0.300-4.500) Salicylates Level < 1.7 mg/dl (2.8-20) Acetaminophen Level < 2 ug/ml (10-30) Ethyl Alcohol mg/dL < 3.0 mg/dl (0-3) Urine Color YELLOW Urine Appearance TURBID (CLEAR) Urine pH 7.0 (4.5-7.5) Urine Specific [place] 1.024 (1.000-1.030) Urine Protein NEG (NEG) Urine Glucose (UA) NEG (NEG) Urine Ketones TRACE (NEG) Urine Occult Blood NEG (NEG) Urine Nitrite NEG (NEG) Urine Bilirubin NEG (NEG) Urine Urobilinogen NEG (NEG) Urine Leukocyte Esterase NEG (NEG) Urine WBC (Auto) 1-5 /hpf (0-5) Urine RBC (Auto) 0-4 /hpf (0-4) Urine Hyaline Casts (Auto) 1-5 /lpf (0-5) Urine Epithelial Cells (Auto) 10-20 /lpf (0-5) Urine Bacteria (Auto) 1+ (NEG) Urine Test NEG (NEG) Urine Opiates Screen NEG (NEG) Urine Methadone, Qualitative NEG (NEG) Urine Barbiturates NEG (NEG) Urine Phencyclidine (PCP) Level NEG (NEG) Ur Amphetamine/Methamphetamine NEG (NEG) MDMA (Ecstasy) Screen NEG (NEG) Urine Benzodiazepines Screen NEG (NEG) Urine Cocaine Metabolite NEG (NEG) Urine Marijuana (THC) NEG (NEG) Problem Qualifiers (1) Depression: Depression Type: major depressive disorder Major depression recurrence: recurrent Active/Remission status: currently active Major depression episode severity: severe Psychotic features: without psychotic features Qualified Codes: F33.2 - Major depressive disorder, recurrent severe without psychotic features
[2017-02-10] MEDS: PRENATAL VITAMIN TAB PO SCH (08:25)
[2017-02-10] MEDS: TOPIRAMATE 25 MG TAB PO SCH (08:26)
[2017-02-10] MEDS: SERTRALINE HCL 100 MG TAB PO SCH (08:26)
[2017-02-10] MEDS: ACETAMINOPHEN 325 MG TAB PO PRN (13:57)
[2017-02-10] MEDS: TRAZODONE HCL 50 MG TAB PO SCH (21:27)
[2017-02-10] MEDS: TOPIRAMATE 50 MG TAB PO SCH (21:27)
[2017-02-11 06:57] VITALS: BP_SYST 105; BP_SYST 114; BP_DIAS 66; BP_DIAS 74; PULSE 69; PULSE 82; TEMP 36.7
[2017-02-11] MEDS: PRENATAL VITAMIN TAB PO SCH (08:49)
[2017-02-11] MEDS: SERTRALINE HCL 100 MG TAB PO SCH (08:49)
[2017-02-11] MEDS: TOPIRAMATE 25 MG TAB PO SCH (08:50)
[2017-02-11] MEDS ORDERED: DSY50 PO (09:11)
[2017-02-11] MEDS ORDERED: SERT-234 PO (09:11)
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
== END 2017-02-11 10:13 | disposition home or self-care (01) | DRG 885 ==
LOC: C.EDB 20:55 → C.MHU 02-04 11:19
PROVIDERS: ADMIT Psychiatry & Neurology Psychiatry; ATTEND Psychiatry & Neurology Psychiatry
DX: F33.2 Major depressive disorder, recurrent severe without psychotic features (principal); R45.851 Suicidal ideations; F12.10 Cannabis abuse, uncomplicated; G43.909 Migraine, unspecified, not intractable, without status migrainosus; E66.9 Obesity, unspecified; F10.10 Alcohol abuse, uncomplicated; Z83.3 Family history of diabetes mellitus

== ENCOUNTER 2017-10-24 16:37 | Emergency (ER) | payer OTHER ==
[~2017-10-24] VITALS: Ht 172.7 cm; Wt 124.5 kg
[~2017-10-24 16:37] MED LIST changes: +DSY50 PO
[2017-10-24 16:39] VITALS: BP 167/112; PULSE 84; TEMP 36.7; O2SAT 98; Ht 172.7 cm; Wt 124.5 kg
[2017-10-24] MEDS ORDERED: PRAZ1CAP10 PO (16:46)
[2017-10-24] MEDS ORDERED: ESCI1TAB10 PO (16:46)
[2017-10-24] MEDS ORDERED: BUSP15TA70 PO (16:46)
[2017-10-24] MEDS ORDERED: HYDR-5688 PO (17:15)
--- NOTE | 2017-10-24 20:18 | EMERGENCY ROOM VISIT NOTE ---
ED Visit Note First contact with patient: 16:43 CHIEF COMPLAINT: Jaw pain. HISTORY OF PRESENT ILLNESS: Ms. Lugo is a 22-year-old white female who ambulates into the ED accompanied by female friend complaining of severe jaw pain. Patient denies any significant past medical history. Patient reports she has been having intermittent jaw pain in the area of her wisdom teeth over the last few months. The pain has been mild and intermittent and she has not followed up with a dentist. Patient reports 3 days ago her pain started becoming constant and increasing in severity. She places her discomfort over the wisdom teeth. With prominence over the right mandibular wisdom teeth. She describes her pain as a combination of sharp and throbbing. She currently rates her discomfort 6/10. She has radiation of her pain into the ear. She reports initially she used ibuprofen with minimal relief of her discomfort and now she is having no relief. Her pain worsens with chewing and palpation of the wisdom teeth. She has not identified any alleviating factors related to the pain. Associated with her pain she reports she has a decreased appetite. Additionally she reports she had a fever last week and is unsure if this has anything to do with her dental pain. She denies any associated symptoms including fevers, chills, sweats, facial swelling, sore throat, difficulty swallowing, voice changes, drooling, hearing changes, ear drainage. REVIEW OF SYSTEMS: As noted above in History of Present Illness. 8 body systems were reviewed with this patient and found to be negative unless noted above otherwise. PMH: Migraine headaches, tonsillectomy, adenoidectomy and unspecified wrist surgery. CURRENT MEDICATION: Topamax, vitamins, IUD, Lexapro, BuSpar, Prazosin.. ALLERGIES TO MEDICATION: Patient denies. SOCIAL HISTORY: Patient is currently employed; she feels safe in her home environment; she denies tobacco use; she admits to alcohol use. PHYSICAL EXAM: Vital Signs: Date Time Temp Pulse Resp B/P (MAP) Pulse Ox O2 Delivery O2 Flow Rate FiO2 10/24/17 16:39 36.7 84 16 167/112 98 Room Air General: 22year-old white female in mild distress due to pain, nontoxic appearing, afebrile and hemodynamically stable. Neurological: Awake, alert and oriented to person, place and time. Answering questions appropriately and following commands. Normal gait. Good hand eye coordination. No focal motor or sensory deficits. Skin: Warm, dry and pink. No soft tissue lesions, rashes, or trauma noted. HEENT: Atraumatic and normocephalic. Sternal ears are nontender. Auditory canals are pink and patent. Tympanic membrane was pearly licea with normal light reflex. Oral cavity is moist and pink. Airway is patent. Uvula is midline and no abscesses are seen. Speech is normal. No drooling. No intraoral trauma is noted. A few caries were noted but no gross decay was noted. All of the wisdom teeth are tender to palpation with prominence over the right mandibular wisdom teeth. It does appear these are impacted. There is no obvious signs of dental decay. No abscesses, erythema or edema identified. No cervical or submandibular lymphadenopathy. ED COURSE: Patient is assessed as noted above. Patient is educated about his findings and instructed on her treatment plan; she verbalizes understanding and agreement with this plan. CLINIC IMPRESSION: Dental pain. DISPOSITION: Patient discharged home in stable condition; prior to departure she was reassessed and subjectively reported she was feeling better and rated her discomfort 7/10. PLAN: Comfort measures were discussed with the patient including the use of a liquid or mechanical soft diet and a sliding pain medication scale of ibuprofen, acetaminophen and [place]; her name was checked and state database and no red flags were noted. She also received appropriate precautions for narcotic use. Patient was encouraged to keep her mouth clean with brushing, flossing and gargling 4-5 times a day. Patient is encouraged to keep her upcoming follow-up appointment with dentistry for definitive care and treatment. Patient is encouraged return ED for worsening pain, fevers, facial swelling or any new/concerning symptoms.
== END 2017-10-24 17:24 | disposition home or self-care (01) ==
LOC: C.EDB 16:38 → C.EDD 17:24
DX: K08.89 Other specified disorders of teeth and supporting structures (principal); Z90.89 Acquired absence of other organs; Z98.890 Other specified postprocedural states

== ENCOUNTER 2018-01-22 16:17 | Emergency (ER) | payer OTHER ==
[~2018-01-22] VITALS: Ht 172.7 cm; Wt 128.7 kg
[~2018-01-22 16:17] MED LIST changes: +BUSP15TA70 PO; -DSY50 PO; +ESCI1TAB10 PO; +HYDR-5688 PO; +LEVO1IUD2; -LEVOIUD; +PRAZ1CAP10 PO; -SERT-234 PO
[2018-01-22 16:20] VITALS: TEMP 36.9; Ht 172.7 cm; Wt 128.7 kg
[2018-01-22] MEDS ORDERED: SODIUM CHLORIDE 0.9% 1000ML 1,000 ML IV STA (16:30)
[2018-01-22] MEDS ORDERED: ONDANSETRON INJ 2 MG/ML 2 ML VIAL IV STA (16:30)
[2018-01-22 16:53] LABS: BASO % 0.4 %; BASO ABS # 0.04 K/uL (0-0.2); EOS % 1.7 %; EOS ABS # 0.15 K/uL (0-0.5); HEMATOCRIT 39.2 % (37-47); HEMOGLOBIN 13.9 g/dL (12.0-16.0); IG# 0.02 K/uL (0.00-0.02); LYMPH % 20.7 %; LYMPH ABS # 1.87 K/uL (1.2-3.4); MEAN CELL VOLUME 86.7 fL (80-100); MEAN CORPUSCULAR HEMOGLOBIN 30.8 pg (25-34); MEAN CORPUSCULAR HGB CONC 35.5 g/dl (32-36); MEAN PLATELET VOLUME 8.8 fL (7.4-10.4); MONO % 6.1 %; MONO ABS # 0.55 K/uL (0.11-0.59); NEUT % 70.9 %; NEUT ABS # 6.42 K/uL (1.4-6.5); PLATELET COUNT 295 K/uL (130-400); RED CELL DISTRIBUTION WIDTH CV 11.9 % (11.5-14.5); RED CELL DISTRIBUTION WIDTH SD 37.8 fL (36.4-46.3); WHITE BLOOD COUNT 9.05 K/uL (4.8-10.8)
--- NOTE | 2018-01-22 16:56 | EMERGENCY ROOM VISIT NOTE ---
History Report prepared by Daniel: Tayler Calixto Under the Supervision of: Dr. Dre Dunaway M.D. First contact with patient: 16:22 Chief Complaint: NAUSEA Stated Complaint: NAUSEA,SEVERE STOMACH PAIN ON R UPPER SIDE History of Present Illness The patient is a 22 year old female who presents to the Emergency Room with complaints of worsening RUQ abdominal pain starting 5 months ago. She saw her PCP 2 days ago and was scheduled for an ultrasound of the gallbladder tomorrow. She was sent to the ED today because of worsening pain. This pain comes with nausea. She describes the pain as dull with intermittent sharp shooting pains. She does not identify anything that improves the pain. The pain worsens with eating, bending down, and going up the stairs. She is also having some back pain in the same area. She has had diarrhea for a while. She denies any chest pain, SOB, urinary symptoms, fever, rash, vaginal bleeding, vaginal discharge, blood in stool, or leg pain. She denies any chance of . She has an IUD in place. Her last period was 3 weeks ago. She denies any trauma or injury. She reports having around 4 alcoholic drinks on the weekends. She denies any history of gallbladder problems, but has a family history of gallbladder problems. She has traveled to [place] recently. She states that she generally keeps up with her fluids, but might not have been drinking as much over the past couple of days. She denies any previous abdominal surgeries. She has a history of depression. She has not had any thoughts of hurting herself or others. She does not smoke. Source of History: patient Onset: 5 months ago Position: abdomen (RUQ) Quality: sharp, dull Timing: worsening Modifying Factors (Worsening): eating Associated Symptoms: + nausea, + diarrhea, No fevers, No chest pain, No SOB , No hematochezia, No urinary symptoms, No rash Review of Systems See HPI for pertinent positives & negatives. A total of 10 systems reviewed and were otherwise negative. Past Medical & Surgical Medical Problems: (1) Lawson's palsy (2) Cannabis abuse (3) Depression (4) Migraine Surgical Problems: (1) H/O adenoidectomy (2) S/P tonsillectomy Social History Problems: (1) Alcohol abuse Old medical records were reviewed. Nurse's notes were reviewed and I agree with. Family History Cancer Diabetes mellitus FHx: gallbladder disease Hypertension Kidney disease Kidney stones Social History Smoking Status: Never Smoker Alcohol Use: occasionally Marital Status: in relationship Current/Historical Medications Scheduled Buspirone Hcl (Buspar), 15 MG PO BID Escitalopram Oxalate (Lexapro), 20 MG PO QAM Multivit/Min/Iron/Fol Ac/Pren ( Vitamin), 1 TAB PO DAILY Topiramate (Topamax ), 25 MG PO AMHS Scheduled PRN Prazosin Hcl (Prazosin), 1 MG PO HS PRN for Sleep Miscellaneous Medications Levonorgestrel (Iud) (Mirena), 24 MCG Allergies Coded Allergies: No Known Allergies (Unverified , 01/22/18) Physical Exam Vital Signs Date Time Temp Pulse Resp B/P (MAP) Pulse Ox O2 Delivery O2 Flow Rate FiO2 01/22/18 17:32 82 16 126/69 99 Room Air 01/22/18 16:20 36.9 98 18 146/90 99 Room Air Physical Exam General: Non-ill appearing young female in no acute distress. HEENT: Normal cephalic atraumatic. Pupils are equal round and reactive to light. Extraocular movements are intact. Oropharynx is pink with moist mucous membranes. No swelling of the mouth lips or tongue. Neck: Supple with a midline trachea. No meningeal signs or stiffness, no JVD or bruits. No Stridor. Chest: Clear to auscultation bilaterally. No wheezes or rhonchi. No increased work of breathing. Heart: regular rate and rhythm. Abdomen: Soft, mild tenderness in the RUQ, nondistended without rebound guarding or rigidity. Extremities: No cyanosis clubbing or edema. No calf tenderness or assymetry Spine/Back. Non tender to palpation. No CVA tenderness Skin: Good turgor without rashes. Neurologic exam: Cranial nerves two through 12 are intact. Motor and sensation are intact and symmetrical throughout. Medical Decision & Procedures ER Provider Diagnostic Interpretation: Radiology results as stated below per my review and radiologist interpretation: ABDOMINAL ULTRASOUND, RIGHT UPPER QUADRANT HISTORY: Abdominal pain. COMPARISON: None. FINDINGS: Liver is sonographically normal. There is no biliary ductal dilatation. The common bile duct measures 3 mm in caliber. A suspected tiny 2 mm gallbladder polyp is noted. There are no shadowing gallstones. There is no gallbladder wall thickening. There is no pericholecystic fluid. The pancreatic body is normal. The head and tail are partially obscured. There is no right hydronephrosis. IMPRESSION: 1. No gallstones or biliary ductal dilatation. 2. Suspected tiny 2 mm gallbladder polyp. 3. Partially obscured pancreas. Electronically signed by: Bertram Patel M.D. 01/22/2018 5:38 PM Laboratory Results 01/22/18 16:39 Red Blood Count 4.52, Mean Corpuscular Volume 86.7, Mean Corpuscular Hemoglobin 30.8, Mean Corpuscular Hemoglobin Concent 35.5, Mean Platelet Volume 8.8, Neutrophils (%) (Auto) 70.9, Lymphocytes (%) (Auto) 20.7, Monocytes (%) (Auto) 6.1, Eosinophils (%) (Auto) 1.7, Basophils (%) (Auto) 0.4, Neutrophils # (Auto) 6.42, Lymphocytes # (Auto) 1.87, Monocytes # (Auto) 0.55, Eosinophils # (Auto) 0.15, Basophils # (Auto) 0.04 01/22/18 16:39 Test 01/22/18 16:39 White Blood Count 9.05 K/uL (4.8-10.8) Red Blood Count 4.52 M/uL (4.2-5.4) Hemoglobin 13.9 g/dL (12.0-16.0) Hematocrit 39.2 % (37-47) Mean Corpuscular Volume 86.7 fL (80-100) Mean Corpuscular Hemoglobin 30.8 pg (25-34) Mean Corpuscular Hemoglobin Concent 35.5 g/dl (32-36) Platelet Count 295 K/uL (130-400) Mean Platelet Volume 8.8 fL (7.4-10.4) Neutrophils (%) (Auto) 70.9 % Lymphocytes (%) (Auto) 20.7 % Monocytes (%) (Auto) 6.1 % Eosinophils (%) (Auto) 1.7 % Basophils (%) (Auto) 0.4 % Neutrophils # (Auto) 6.42 K/uL (1.4-6.5) Lymphocytes # (Auto) 1.87 K/uL (1.2-3.4) Monocytes # (Auto) 0.55 K/uL (0.11-0.59) Eosinophils # (Auto) 0.15 K/uL (0-0.5) Basophils # (Auto) 0.04 K/uL (0-0.2) RDW Standard Deviation 37.8 fL (36.4-46.3) RDW Coefficient of Variation 11.9 % (11.5-14.5) Immature Granulocyte % (Auto) 0.2 % Immature Granulocyte # (Auto) 0.02 K/uL (0.00-0.02) Urine Color YELLOW Urine Appearance CLOUDY (CLEAR) Urine pH 8.0 (4.5-7.5) Urine Specific [place] 1.019 (1.000-1.030) Urine Protein NEG (NEG) Urine Glucose (UA) NEG (NEG) Urine Ketones NEG (NEG) Urine Occult Blood NEG (NEG) Urine Nitrite NEG (NEG) Urine Bilirubin NEG (NEG) Urine Urobilinogen NEG (NEG) Urine Leukocyte Esterase NEG (NEG) Urine WBC (Auto) 1-5 /hpf (0-5) Urine RBC (Auto) 0-4 /hpf (0-4) Urine Hyaline Casts (Auto) 0 /lpf (0-5) Urine Epithelial Cells (Auto) 10-20 /lpf (0-5) Urine Bacteria (Auto) NEG (NEG) Anion Gap 8.0 mmol/L (3-11) Est Creatinine Clear Calc Drug Dose 148.4 ml/min Estimated GFR () 113.5 Estimated GFR (Non- 97.9 BUN/Creatinine Ratio 12.1 (10-20) Calcium Level 9.0 mg/dl (8.5-10.1) Total Bilirubin 0.2 mg/dl (0.2-1) Direct Bilirubin < 0.1 mg/dl (0-0.2) Aspartate Amino Transf (AST/SGOT) 13 U/L (15-37) Alanine Aminotransferase (ALT/SGPT) 39 U/L (12-78) Alkaline Phosphatase 71 U/L (45-117) Total Protein 7.8 gm/dl (6.4-8.2) Albumin 4.0 gm/dl (3.4-5.0) Lipase 147 U/L (73-393) Human Chorionic Gonadotropin, Qual NEG (NEG) Laboratory studies as stated above per my review. Medications Administered Medications (Trade) Dose Ordered Sig/Herrera Route Start Time Stop Time Status Last Admin Dose Admin Sodium Chloride 1,000 ml @ 999 mls/hr Q1H1M STAT IV 01/22/18 16:30 01/22/18 17:30 DC 01/22/18 16:30 999 MLS/HR Ondansetron HCl (Zofran Inj) 4 mg NOW STAT IV 01/22/18 16:30 01/22/18 16:32 DC 01/22/18 16:30 4 MG ED Course 1624: Past medical records reviewed. The patient was evaluated in room B3B, and a complete history and physical examination were performed. 1630: Zofran Inj 4 mg IV, NSS 1000 ml @ 999 mls/hr IV. 1755: Upon reevaluation, the patient is feeling better. I discussed the results and treatment plan with her. She verbalized agreement of the treatment plan. The patient was discharged home. Medical Decision Differentials include, but are not limited to; gallbladder disease, peptic ulcer disease, pulmonary disease, pancreatitis, infection, , UTI, electrolyte or metabolic abnormality. This patient comes in as described above, she was placed in room B3. She does have a strong family history of gallbladder disease. She does have history of depression but says that this is been stable. IV access was established she was hydrated normal saline. Multiple blood tests was obtained. She wa s given Zofran 4 mg IV. I also ordered an ultrasound. She has no fever or white count to suggest infection. She has no acute electrolyte or metabolic adamantly. Her blood work does not suggest gallbladder disease liver disease or pancreas disease. Gallbladder ultrasound was unremarkable. test is negative. This may be more peptic ulcer disease she is going to use antacid over-the- counter. She should follow-up with her regular doctor next 1-2 days if this persists she may ultimately further testing such as a HIDA scan or GI referral/ endoscopy. The patient was happy with the plan and she was discharged to home.. Medication Reconcilliation Current Medication List: was personally reviewed by me Blood Pressure Screening Patient's blood pressure: Elevated blood pressure Blood pressure disposition: Elevated BP felt to be situational Impression Primary Impression: RUQ abdominal pain Scribe Attestation The scribe's documentation has been prepared under my direction and personally reviewed by me in its entirety. I confirm that the note above accurately reflects all work, treatment, procedures, and medical decision making performed by me. Departure Information Dispostion Home / Self-Care Referrals Ines Martinez MD (PCP) Forms HOME CARE DOCUMENTATION FORM, IMPORTANT VISIT INFORMATION Patient Instructions My [facility] Additional Instructions Rest. Drink plenty of fluids. Mild diet. Continue to use your Zantac Return if increasing pain, worsening symptoms, fever or chills, any new problems or concerns Use acetaminophen/Tylenol if needed for pain. Do not exceed more than 2 pills ( 325 mg) every 6 hours Follow-up with your doctor this week for recheck.
[2018-01-22 17:12] LABS: ALT/SGPT 39 U/L (12-78); AST/SGOT 13 U/L (15-37); BLOOD UREA NITROGEN 10 mg/dl (7-18); CARBON DIOXIDE 23 mmol/L (21-32); CREATININE 0.85 mg/dl (0.60-1.20); GLUCOSE 98 mg/dl (70-99); LIPASE 147 U/L (73-393); POTASSIUM 3.7 mmol/L (3.5-5.1); SODIUM 137 mmol/L (136-145)
[2018-01-22 17:14] LABS: ALKALINE PHOSPHATASE 71 U/L (45-117); TOTAL PROTEIN 7.8 gm/dl (6.4-8.2)
[2018-01-22 17:32] VITALS: BP 126/69; PULSE 82; O2SAT 99
--- NOTE | 2018-01-22 17:39 | DIAGNOSTIC IMAGING REPORT ---
ABDOMINAL ULTRASOUND, RIGHT UPPER QUADRANT HISTORY: Abdominal pain. COMPARISON: None. FINDINGS: Liver is sonographically normal. There is no biliary ductal dilatation. The common bile duct measures 3 mm in caliber. A suspected tiny 2 mm gallbladder polyp is noted. There are no shadowing gallstones. There is no gallbladder wall thickening. There is no pericholecystic fluid. The pancreatic body is normal. The head and tail are partially obscured. There is no right hydronephrosis. IMPRESSION: 1. No gallstones or biliary ductal dilatation. 2. Suspected tiny 2 mm gallbladder polyp. 3. Partially obscured pancreas. Electronically signed by: Bertram Patel M.D. 01/22/2018 5:38 PM Dictated Date/Time: 01/22/2018 5:34 PM
== END 2018-01-22 19:03 | disposition home or self-care (01) ==
LOC: C.EDB 16:18
DX: R10.11 Right upper quadrant pain (principal); R11.0 Nausea

== ENCOUNTER → 2018-02-07 | Outpatient (CLI) | payer OTHER ==
[~2018-02-07] MED LIST changes: -HYDR-5688 PO; +SINCALIDE INJ 2.5 MCG in SODIUM CHLORIDE 0.9% 100ML 100 ML IV SCH
--- NOTE | 2018-02-07 10:41 | DIAGNOSTIC IMAGING REPORT ---
HEPATOBILIARY EF IMAGING CLINICAL HISTORY: R10.11 Abdominal pain, RUQ (right upper quadrant)K82.4 gallbladder polyp COMPARISON STUDY: Biliary ultrasound dated 01/22/2018 FINDINGS: The patient was injected with 5.1 mCi of technetium 99m Choletec. Sequential anterior imaging was performed. Hepatic excretion appeared unremarkable. The gallbladder was first visualized on the 10 minute image. At 1 hour, the patient was administered 2.5 mcg of sincalide utilizing a 30 minute intravenous infusion. There is normal passage of activity into small bowel. The gallbladder ejection fraction was normal measuring 88%. IMPRESSION: Normal study. No evidence of cystic duct obstruction. Normal gallbladder ejection fraction of 80%. Electronically signed by: Pavan Solorzano M.D. 02/07/2018 10:40 AM Dictated Date/Time: 02/07/2018 10:24 AM
== END | disposition home or self-care (01) ==
LOC: C.NUCL 07:45
PROVIDERS: ATTEND Nurse Practitioner Family
DX: K82.4 Cholesterolosis of gallbladder (principal); R10.11 Right upper quadrant pain

== ENCOUNTER 2022-11-23 07:42 | Inpatient (IN) ==
[2022-11-23] MEDS ORDERED: LIDOCAINE 1% LOCAL 20 ML VIAL INFIL PRN (09:08)
[2022-11-23] MEDS ORDERED: OXYTOCIN 30 UNITS/500 ML BAG IV PRN ×3 (09:08→09:43)
--- NOTE | 2022-11-23 09:08 | History & Physical Report ---
Date of Service November 23, 2022 Assessment & Plan (1) Elective induction of labor planned: Plan: 27 y/o female at 40+ here for IOL. No contractions. Overall doing well. Epidural when/if desired. Pit as needed. Continue to monitor. Rh neg, GBS neg, RI Last pap 2019 No STDs Admission and Anticipated Discharge Date Admission Date: November 23, 2022 History of Present Illness Chief Complaint: IOL Primary Care Provider: Ines Martinez MD 27 y/o female at 40+ here for IOL. No contractions. Overall doing well. Rh neg, GBS neg, RI Last pap 2019 No STDs Allergies Allergy/AdvReac Type Severity Reaction Status Date / Time No Known Allergies Allergy Verified 11/23/22 07:58 Home Medications Medication Instructions Recorded Confirmed Type prenat.vits,mini,ybv-[id number]-[id number] 1 tab PO DAILY 04/04/22 11/23/22 History ferrous sulfate 325 mg (65 mg 325 mg PO DAILY 11/23/22 11/23/22 History iron) tablet (Iron (ferrous sulfate)) Patient History Medical History (Updated 11/23/22 @ 09:06 by Irma Bolton MD) COVID-19 February of 2022 Migraine Varicella vaccination Surgical History H/O adenoidectomy S/P tonsillectomy S/P wrist surgery right-as a teenager Family History Grandmother (Maternal) Breast cancer Father Hypertension Mother Anemia Denies family history of Ovarian cancer Colorectal cancer Social History (Updated 11/23/22 @ 07:58 by Zulema Sethi, RN) Smoking Status: Never smoker Hx Alcohol Use: No Hx Substance Use: No Preferred Language: Hebrew Supervisor Type Photography Required: No Beliefs That Will Affect Care: None marital status: marital status details: Julio Davis (25) [phone] Current Living Situation: Spouse Current Living Situation Comment: lives with spouse, cat-spouse changing litter current occupational status: employed 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 Feels Safe at Home: Yes Safety Concerns: Feels Safe At This Time Assistive Devices: None Review of Systems All systems reviewed & are unremarkable except as noted in HPI & below Physical Exam Constitutional: WD/WN, vitals as above Respiratory: normal respiratory effort, lungs clear to auscultation Cardiovascular: RRR, no murmur, no edema Extremities: no calf tenderness Psychiatric: A+Ox3, euthymic affect Genitourinary: OB Exam Abdomen: + vertex, + estimated weight (7-8 pounds) and + irregular contractions Manual OB Exam: + cervical dilation 2 cm, + cervical effacement 70% and + station -2 OB Exam Monitor Tracing: + external FHT monitor used, + category I and + normal FHT variability Results & Data ([facility]) Vital Signs (Past 12 Hours) Vital Signs Temp Pulse Resp BP 11/23/22 07:55 116 H 128/76 11/23/22 07:54 37.0 C 20 Supervising Physician Co-Signing Physician Notes Resident Physician Supervision Note: I interviewed and examined the patient. Discussed with Dr. Bolton and agree with findings and plan as documented in the note. Any exceptions or clarifications are listed here: [None] Documented By: Virginia Darden MD, FACOG Resident Activity Tracking Resident Involvement: Resident Care Provided Care Provided: OB Delivery
[2022-11-23] MEDS: LACTATED RINGER'S 1,000 ML IV PRN ×3 (09:36→21:35)
[2022-11-23 09:57] LABS: Hematocrit (blood only) 32.5 % (34.1-44.9); Mean Corpuscular Hemoglobin 30.3 pg (25.0-34.0); Mean Corpuscular Hgb Conc 33.8 g/dL (32.0-36.0); Mean Corpuscular Volume 89.5 fL (80.0-100.0); Mean Platelet Volume 9.5 fL (9.4-12.3); Platelet Count 232 K/uL (130-400); RDW Coefficient of Variation 14.9 % (11.5-14.5); RDW Standard Deviation 46.8 fL (36.4-46.3); Red Blood Count 3.63 M/uL (3.93-5.22); White Blood Count 10.68 K/ul (4.8-10.8)
--- NOTE | 2022-11-23 15:34 | Labor Progress Brief Note ---
Date of Service November 23, 2022 Subjective Reason For Note: Routine Evaluation Assessment & Plan (1) Elective induction of labor planned: Plan: 27 y/o female at 40+ here for IOL. No contractions. Overall doing well. Epidural when/if desired. Pit as needed. Continue to monitor. Rh neg, GBS neg, RI Last pap 2018 No STDs Admission and Anticipated Discharge Date Admission Date: November 23, 2022 Physical Exam Genitourinary: Manual OB Exam: + cervical dilation 3 cm, + cervical effacement 70%, + station -2 and + amniotic fluid (AROM) meconium OB Exam Monitor Tracing: + external FHT monitor used, + external uterine monitor used, + category I and + normal FHT variability Results & Data ([facility]) Vital Signs (Past 12 Hours) Vital Signs Temp Pulse Resp BP 11/23/22 15:17 96 H 122/73 11/23/22 14:55 18 11/23/22 14:55 36.9 C 18 11/23/22 14:17 99 H 125/74 11/23/22 13:21 101 H 125/80 11/23/22 12:18 96 H 119/67 11/23/22 11:15 20 11/23/22 11:15 36.7 C 20 11/23/22 11:17 93 H 117/65 11/23/22 09:36 99 H 117/70 11/23/22 07:55 116 H 128/76 11/23/22 07:54 37.0 C 20 Coding Level of Care Code None Diagnoses Elective induction of labor planned
[2022-11-23] MEDS ORDERED: SODIUM CHLORIDE 0.9% INJ 10 ML VIAL ONE ×2 (16:16→21:41)
[2022-11-23] MEDS ORDERED: LIDOCAINE 2%/EPINEPHRINE 1:200,000 20 ML SDV ONE ×2 (16:16→21:41)
[2022-11-23] MEDS ORDERED: BUPIVACAINE 0.25% 30 ML VIAL ONE ×2 (16:16→21:41)
[2022-11-23] MEDS ORDERED: fentaNYL citrate 100 MCG/2 ML VIAL ONE ×2 (16:16→21:41)
[2022-11-23] MEDS ORDERED: ePHEDrine sulfate 50 MG/ML AMP ONE ×2 (16:16→21:41)
[2022-11-23] MEDS ORDERED: fentaNYL 2MCG/ML ROPIVACAINE 1.25MG/ML 100 ML BAG EPI ONE (16:17)
[2022-11-23] MEDS ORDERED: NALOXONE HCL 0.4 MG/1 ML VIAL/CARP IV PRN (16:19)
[2022-11-23] MEDS ORDERED: diphenhydrAMINE 50 MG/ML VIAL IV PRN (16:19)
[2022-11-23] MEDS ORDERED: NALBUPHINE HCL INJ 10 MG/ML AMP IV PRN (16:19)
[2022-11-23] MEDS ORDERED: ePHEDrine sulfate 50 MG/ML AMP IV PRN (16:19)
[2022-11-23] MEDS ORDERED: NALOXONE HCL 1 MG in SODIUM CHLORIDE 0.9% 1000ML 1,000 ML IV PRN (16:19)
--- NOTE | 2022-11-23 16:33 | Anesthesiology Consultation ---
Date of Service November 23, 2022 Assessment & Plan ASA ASA2 Proposed Anesthesia Anesthesia Type: Labor Epidural Risk / Benefits Reviewed With: PT / POA / Parent / Guardian, Accepts Plan and Informed Consent Obtained History Height/Weight Height: 5 ft 8 in Weight: 139.706 kg Allergies Allergy/AdvReac Type Severity Reaction Status Date / Time No Known Allergies Allergy Verified 11/23/22 07:58 Medications Home Medications Medication Instructions Recorded Confirmed Last Taken prenat.vits,mini,zpj-bdcq-sgyay 1 tab PO DAILY 04/04/22 11/23/22 11/22/22 21:00 ferrous sulfate 325 mg (65 mg 325 mg PO DAILY 11/23/22 11/23/22 11/22/22 21:00 iron) tablet (Iron (ferrous sulfate)) Active Medications Generic Name Dose Route Start Last Admin Trade Name Freq PRN Reason Stop Dose Admin Lactated Ringer's 1,000 mls @ 125 mls/hr 11/23/22 09:08 11/23/22 16:45 Lr IV 11/25/22 09:07 125 mls/hr .Q8H PRN Infusion L&D Protocol Protocol Oxytocin 30 units in 500 mls @ 17 mls/hr 11/23/22 09:08 11/23/22 14:15 Pitocin IV 11/25/22 09:07 1.02 units/hr .Q24H PRN 17 mls/hr Labor Induction/Augmentation Titration Protocol 1.02 UNITS/HR Past Medical History Medical History (Updated 11/23/22 @ 10:30 by Zulema Sethi, TOMMY) COVID-19 February of 2022 Depression no meds- more in college per pt. Migraine Varicella vaccination Exercise / Class Metabolic Activity II 4-5 Yardwork/Stairs/Walk up hill Past Family History Family History Grandmother (Maternal) Breast cancer Father Hypertension Mother Anemia Denies family history of Ovarian cancer Colorectal cancer Past Surgical History Surgical History H/O adenoidectomy S/P tonsillectomy S/P wrist surgery right-as a teenager Past Anesthesia History No Hx of Anesthesia Complications and No Family Hx of Anesthesia Complications History of PONV No Hx of PONV and No Hx of Motion Sickness Social History Smoking Status: Never smoker Hx Alcohol Use: No Hx Substance Use: No substance use type: does not use Review of Systems denies fever/cough/ colds/ chest pain/ SOB/ CAIN denies CAIN Physical Exam Vital Signs Last Vital Signs Temp 37.0 C 11/23/22 17:08 Pulse 103 H 11/23/22 17:30 Resp 20 11/23/22 17:15 BP 134/70 11/23/22 17:30 Pulse Ox 95 11/23/22 17:29 ENMT Mouth: no TMJ abnormality and no dentition abnormality Thyromental Distance: > or= 3.5 Finger Breadths Mallampati Class: II Neck neck extension not limited Respiratory normal respiratory effort; no respiratory distress Auscultation: lungs clear to auscultation bilaterally Cardiovascular Rate/Rhythm: regular rate and regular rhythm Neurologic moves all extremities Psychiatric Orientation: alert and oriented x 3 Testing Laboratory Results 11/23/22 08:46 Blood Type A Negative 11/23/22 08:40 Antibody Screen NEGATIVE 11/23/22 08:40
--- NOTE | 2022-11-23 18:41 | Labor Progress Brief Note ---
Date of Service November 23, 2022 Subjective Reason For Note: Routine Evaluation Assessment & Plan (1) Elective induction of labor planned: Plan: 27 y/o female at 40+ here for IOL. No contractions. Overall doing well. continue Pitocin. Status post AROM. Minimal change noted. IUPC and FSE placed. Rh neg, GBS neg, RI Last pap 2019 No STDs Admission and Anticipated Discharge Date Admission Date: November 23, 2022 Physical Exam Genitourinary: Manual OB Exam: + cervical dilation 4 cm, + cervical effacement 80%, + station -2 and + amniotic fluid meconium OB Exam Monitor Tracing: + external FHT monitor used, + external uterine monitor used, + category I and + normal FHT variability IUPC and FSE placed Results & Data ([facility]) Vital Signs (Past 12 Hours) Vital Signs Temp Pulse Resp BP Pulse Ox 11/23/22 18:37 123 H 127/65 11/23/22 18:34 109 H 100 11/23/22 18:31 102 H 131/90 11/23/22 18:29 125 H 100 11/23/22 18:24 106 H 96 11/23/22 18:25 108 H 120/60 11/23/22 18:21 98 H 133/72 11/23/22 18:19 107 H 95 11/23/22 18:15 96 H 18 129/67 11/23/22 18:14 104 H 95 11/23/22 18:11 102 H 130/70 11/23/22 18:09 103 H 94 11/23/22 18:10 100 H 94 11/23/22 18:00 18 11/23/22 18:00 18 11/23/22 18:05 97 H 127/67 11/23/22 18:04 104 H 95 11/23/22 18:01 100 H 126/68 11/23/22 17:59 108 H 96 11/23/22 17:54 107 H 97 11/23/22 17:55 108 H 114/57 L 11/23/22 17:49 98 H 97 11/23/22 17:50 102 H 129/61 11/23/22 17:45 20 11/23/22 17:45 20 11/23/22 17:46 108 H 130/70 11/23/22 17:44 109 H 95 11/23/22 17:40 117 H 126/64 11/23/22 17:39 108 H 97 11/23/22 17:35 111 H 126/69 11/23/22 17:34 110 H 96 11/23/22 17:05 20 11/23/22 17:05 20 11/23/22 17:30 103 H 20 134/70 11/23/22 17:29 103 H 95 11/23/22 17:24 106 H 96 11/23/22 17:25 109 H 139/74 11/23/22 17:19 101 H 98 11/23/22 17:20 105 H 138/69 11/23/22 17:14 110 H 97 11/23/22 17:15 113 H 20 136/71 11/23/22 17:09 106 H 98 11/23/22 17:10 103 H 18 138/71 11/23/22 17:08 37.0 C 105 H 20 138/76 11/23/22 17:06 113 H 131/74 11/23/22 17:04 108 H 135/73 97 11/23/22 17:01 102 H 132/69 11/23/22 16:59 115 H 99 11/23/22 16:54 96 H 99 11/23/22 16:49 96 H 99 11/23/22 16:44 99 H 99 11/23/22 16:39 100 H 99 11/23/22 16:34 97 H 98 11/23/22 16:29 100 H 99 11/23/22 16:17 99 H 129/76 11/23/22 15:17 96 H 122/73 11/23/22 14:55 18 11/23/22 14:55 36.9 C 18 11/23/22 14:17 99 H 125/74 11/23/22 13:21 101 H 125/80 11/23/22 12:18 96 H 119/67 11/23/22 11:15 20 11/23/22 11:15 36.7 C 20 11/23/22 11:17 93 H 117/65 11/23/22 09:36 99 H 117/70 11/23/22 07:55 116 H 128/76 11/23/22 07:54 37.0 C 20 Coding Level of Care Code None Diagnoses Elective induction of labor planned
[2022-11-23] MEDS: ONDANSETRON INJ 2 MG/ML 2 ML VIAL IV PRN (18:47)
[2022-11-23] MEDS: fentaNYL 2MCG/ML ROPIVACAINE 1.25MG/ML 100 ML BAG EPI PRN (22:03)
--- NOTE | 2022-11-23 23:08 | Communication Note ---
Date of Service: November 23, 2022 asked to reevaluate the patient because of lower vaginal pain. 06/20. pt 4cm. Decided to replace epidural because pt is not very far along. removed xisting epidural with tip intact. Sterile prep/drape/gloves. 1% lidocaine infiltrated. 17 guage touey advanced to ODALIS with air at 8 cm. easy catheter thread. 2% lidociane with epi 3 cc test dose. Negative IV/IT. catheter taped. Pt bolused 100 mcg fentanyl and 5 cc of .25% bupivicaine in divided doses. vss
[2022-11-24] MEDS: fentaNYL 2MCG/ML ROPIVACAINE 1.25MG/ML 100 ML BAG EPI PRN ×2 (03:19→07:40)
[2022-11-24] MEDS: ONDANSETRON INJ 2 MG/ML 2 ML VIAL IV PRN (03:52)
[2022-11-24] MEDS: LACTATED RINGER'S 1,000 ML IV PRN (03:52)
[2022-11-24] MEDS ORDERED: MINERAL OIL 30 ML UDC ONE (07:39)
[2022-11-24] MEDS ORDERED: miSOPROStoL 200 MCG TAB ONE (08:33)
[2022-11-24] MEDS ORDERED: BENZOCAINE 20% AER SPR 82.5 GM CAN EXT PRN (09:04)
[2022-11-24] MEDS ORDERED: OXYTOCIN 30 UNITS/500 ML BAG IV PRN (09:04)
[2022-11-24] MEDS ORDERED: HYDROCORTISONE ACETATE 25 MG SUPP PR PRN (09:04)
[2022-11-24] MEDS ORDERED: DIPHTHERIA/TETANUS/PERTUSSIS 0.5mL SYR/VIAL (Age 7+yrs) IM ONE (09:04)
[2022-11-24] MEDS ORDERED: bisacodyL 10 MG SUPP PR PRN (09:04)
[2022-11-24] MEDS ORDERED: ACETAMINOPHEN 325 MG TAB PO PRN (09:04)
--- NOTE | 2022-11-24 10:56 | Anesthesia Procedure Note ---
Date of Service November 24, 2022 Anesthesia Post Epidural Note Vital Signs Vital Signs: Temp Pulse Resp BP Pulse Ox 36.5 C 112 H 24 128/69 97 11/24/22 07:10 11/24/22 10:41 11/24/22 07:10 11/24/22 10:41 11/24/22 08:29 Pain Intensity Abdomen: Pain Intensity: 10 Notes Mental Status: alert / awake / arousable Nausea / Vomiting: adequately controlled Pain: adequately controlled Airway Patency, RR, SpO2: stable & adequate BP & HR: stable & adequate Hydration State: stable & adequate Neuraxial Anesthesia: was administered and sensory block is resolving Anesthetic Complications: no major complications apparent Epidural: Removed without complications and With tip intact
[2022-11-24] MEDS: IBUPROFEN 600 MG TAB PO PRN (13:43)
[2022-11-24] MEDS: DOCUSATE SODIUM 100 MG CAP PO SCH (20:59)
[2022-11-25 06:34] LABS: Hematocrit (blood only) 24.7 % (34.1-44.9); Hemoglobin 8.4 g/dl (12.0-16.0)
--- NOTE | 2022-11-25 07:39 | Obstetrical Progress Note ---
Date of Service November 25, 2022 Assessment & Plan (1) Encounter for care and examination after delivery: satisfactory course continue current care plan Subjective Ambulation: ambulating normally Voiding: no voiding problems Passing Gas:: Yes Diet Tolerance:: regular diet Lochia:: Small Feeding Type:: breast feeding Review of Systems All systems reviewed & are unremarkable except as noted in HPI & below Physical Exam Constitutional WD/WN, vitals as above Cardiovascular Extremities: no calf tenderness Psychiatric A+Ox3, euthymic affect Genitourinary OB Exam Abdomen: + fundal height Fundus: + firm and + relation to umbilicus (at U) Results & Data ([facility]) Vital Signs (Past 12 Hours) Vital Signs Temp Pulse Resp BP Pulse Ox O2 Del Method 11/25/22 04:30 97.9 F 92 H 16 107/73 97 Room Air 11/24/22 22:51 98.1 F 87 18 101/68 98 Room Air
[2022-11-25] MEDS: IBUPROFEN 600 MG TAB PO PRN ×2 (08:25→20:46)
[2022-11-25] MEDS: DOCUSATE SODIUM 100 MG CAP PO SCH ×2 (08:25→20:45)
[2022-11-25] MEDS: PRENATAL VITAMIN 1 TAB PO SCH (08:25)
[2022-11-25] MEDS: FERROUS SULFATE 325 MG TAB PO SCH (08:25)
[2022-11-25] MEDS ORDERED: bisacodyL 5 MG TABEC PO SCH (20:00)
[2022-11-26] MEDS: IBUPROFEN 600 MG TAB PO PRN (06:17)
--- NOTE | 2022-11-26 07:32 | Obstetrical Progress Note ---
Date of Service November 26, 2022 Assessment & Plan (1) Encounter for care and examination after delivery: satisfactory exam discharge to home will take iron supplement with PNV for the next 6 weeks f/u in 6 weeks or PRN Subjective Ambulation: ambulating normally Voiding: no voiding problems Passing Gas:: Yes Diet Tolerance:: regular diet Lochia:: Small Feeding Type:: breast feeding Review of Systems All systems reviewed & are unremarkable except as noted in HPI & below Physical Exam Constitutional WD/WN, vitals as above Psychiatric A+Ox3, euthymic affect Genitourinary OB Exam Abdomen: + fundal height Fundus: + firm and + relation to umbilicus (at U) Results & Data ([facility]) Vital Signs (Past 12 Hours) Vital Signs Temp Pulse Resp BP Pulse Ox O2 Del Method 11/26/22 01:00 98.1 F 81 18 120/82 Room Air 11/25/22 22:49 97.5 F L 85 16 97/62 L 98 Room Air 11/25/22 20:30 99.0 F 112 H 16 114/76 97 Room Air
[2022-11-26] MEDS: FERROUS SULFATE 325 MG TAB PO SCH (08:52)
[2022-11-26] MEDS: PRENATAL VITAMIN 1 TAB PO SCH (08:52)
[2022-11-26] MEDS: DOCUSATE SODIUM 100 MG CAP PO SCH (08:52)
--- NOTE | 2022-11-26 13:24 | Delivery Summary ---
DATE OF SERVICE: 11/24/2022. PROCEDURE: Normal spontaneous vaginal delivery with second-degree perineal laceration repair. SURGEON: Karsten Roberson MD. PREOPERATIVE DIAGNOSES: 1. Single intrauterine at 41 weeks gestational age. 2. BMI greater than 40. 3. Rh negative. POSTOPERATIVE DIAGNOSES: 1. Single intrauterine at 41 weeks gestational age. 2. BMI greater than 40. 3. Rh negative. 4. Status post delivery. ESTIMATED BLOOD LOSS: 300 mL. DRAINS: Straight cath at the completion of the case. URINE OUTPUT: Per straight cath. COMPLICATIONS: None. FINDINGS: Viable with weight and Apgars pending. DESCRIPTION OF PROCEDURE: The patient progressed to 10 cm dilated, 100% effaced, positive 1 station, pushed over intact perineum with epidural anesthesia and delivered a viable with weight and Apgars as noted above. The head of the delivered in COMFORT position, restituted to left transve rse. No nuchal cord was noted. Body and shoulders quickly followed. was noted to be vigoro us soon after delivery and 1 minute delayed cord clamping was initiated. The cord was then double cl amped and cut. remained on maternal abdomen. Cord blood was obtained. Attention was then t urned delivery of placenta, which was delivered intact, 3-vessel cord, gentle cord traction. On insp ection of the perineum, vagina, cervix, there was noted to be a second-degree perineal laceration, wh ich was repaired with 3-0 Vicryl in the traditional crown stitch. Needle, sponge, and instrument cou nts were correct at the completion of the case. Both mother and stable in the immediate post -delivery period. Job ID: [id number]
== END 2022-11-26 12:05 | disposition home or self-care (01) | DRG 807 ==
LOC: 4S1 07:42 → 4E2 11-24 12:13